=== PATIENT | female | born 1990 | race Caucasian/White ===

== ENCOUNTER 2019-05-25 18:02 | Emergency (ER) | payer MEDICAID ==
[~2019-05-25] VITALS: Ht 160 cm; Wt 97.1 kg
[2019-05-25 18:26] VITALS: BP 120/72
--- NOTE | 2019-05-25 19:01 | NUR ---
PT AMBULATED TO ER BED 6
--- NOTE | 2019-05-25 19:32 | NUR ---
29/F PRESENTS TO ED WITH CAREGIVERS, C/O EPIGASTRIC PAIN, N/V/D, X4 DAYS. PT AWAKE AND ALERT, SKIN NORMAL COLOR WARM AND DRY, RR EVEN AND UNLABORED. LUNG SOUNDS CLEAR BL. BS HYPOACTIVE X4, ABD SOFT ROUND MILDLY TENDER TO TOUCH. HX GERD, SCHIZOPHRENIA
--- NOTE | 2019-05-25 19:34 | NUR ---
Dr. San examining patient.
[2019-05-25] MEDS ORDERED: ONDANSETRON 4 MG ODT PO ONE (19:50)
--- NOTE | 2019-05-25 19:56 | NUR ---
MEDICATED WITH 4 MG ODT ZOFRAN FOR NAUSEA. WILL REASSESS.
--- NOTE | 2019-05-25 20:16 | NUR ---
PT TAKEN TO XRAY
--- NOTE | 2019-05-25 20:16 | NUR ---
XRAY AT BEDSIDE
--- NOTE | 2019-05-25 20:39 | NUR ---
PT ABLE TO TOLERATE PO CHALLENGE, NO N/V.
[2019-05-25 20:50] VITALS: BP 148/98
--- NOTE | 2019-05-25 20:50 | NUR ---
Patient discharged with v/s stable. Written and verbal after care instructions given and explained. Patient alert, oriented and verbalized understanding of instructions. Ambulatory with steady gait. All questions addressed prior to discharge. ID band removed. Patient advised to follow up with PMD. Rx of ZOFRAN ODT, MINERAL OIL given. Patient educated on indication of medication including possible reaction and side effects. Opportunity to ask questions provided and answered.
== END 2019-05-25 20:50 | disposition home or self-care (01) ==
LOC: MED 18:02
DX: R10.84 Generalized abdominal pain (principal); R11.10 Vomiting, unspecified; R19.7 Diarrhea, unspecified
CPT/HCPCS: 74018; 81002; 81025; 99283; Q0162